=== PATIENT | male | born 1965 | race African-American/Black ===

== ENCOUNTER 2016-10-12 10:54 | Inpatient (IN) | payer OTHER ==
[2016-10-12] VITALS (599 sets, daily range): BP systolic 108–150; BP diastolic 72–96; PULSE 80–103; TEMP 97.1–98.3; O2SAT 86–97
[~2016-10-12] VITALS: Ht 195.6 cm; Wt 130.4 kg
[~2016-10-12 10:54] MED LIST: ADALAT CC60 MG PO; CATAPRES 0.1MG0.1 MG PO; COREG12.5 MG PO; NAPROSYN500 MG PO; PERCOCET 325 MG1 TA2 PO; ZYLOPRIM 100MG100 MG PO
[2016-10-12] MEDS ORDERED: ZANTAC 300300 MG PO (11:17)
[2016-10-12] MEDS ORDERED: JANUMET 500 MG-1 TA1 PO (11:17)
[2016-10-12] MEDS ORDERED: PRINZIDE 12.5 M1 TA1 PO ×2 (11:19→22:05)
[2016-10-12] MEDS ORDERED: VIAGRA100 M1 PO (11:20)
[2016-10-12 11:49] LABS: BASO # 0.1 (0.0-0.2); BASO % 0.9 % (0.0-2.0); EOS % 0.1 % (0-4.0); GRAN # 7.7 (1.4-6.5); GRAN % 75.4 % (42.2-75.2); HEMATOCRIT 45.3 % (42.0-52.0); HEMOGLOBIN 14.9 g/dl (13.5-18.0); LYMPH % 19.4 % (20.0-51.0); MEAN CELL VOLUME 85 fl (80.0-100.0); MEAN CORPUSCULAR HEMOGLOBIN 28 pg (27.0-31.0); MEAN CORPUSCULAR HGB CONC 33 g/dl (33.0-37.0); MEAN PLATELET VOLUME 11.9 fl (7.4-10.4); MONO # 0.4 (0.1-0.6); MONO % 3.7 % (1.7-9.3); PLATELET COUNT 291 K/mm3 (130-400); RED BLOOD COUNT 5.33 M/mm3 (4.20-5.60); REDCELL DISTRIBUTION WIDTH-CV 13.7 % (11.5-14.5); WHITE BLOOD COUNT 10.2 K/mm3 (4.8-10.8)
[2016-10-12 11:53] LABS: ARTERIAL BLD GAS O2 SATURATION 91.3 % (92-100); ARTERIAL BLD GAS TCO2 CT 24.6; ARTERIAL BLOOD GAS BASE EXCESS -1.8 (-2-2); ARTERIAL BLOOD GAS HCO3 23.3 meq/L (22-26); ARTERIAL BLOOD GAS PHT 7.37 C (7.35-7.45); ARTERIAL BLOOD GAS PO2 67.4 mmHg (80-100); ARTERIAL BLOOD GAS PO2T 67.4 (80-100); ARTERIAL BLOOD GAS pH 7.37 (7.35-7.45)
[2016-10-12 11:54] LABS: ATS? YES
[2016-10-12 12:01] LABS: ADJUSTED CALCIUM 9.6 mg/dL (8.4-10.2); ALANINE AMINOTRANSFERASE 28 U/L (21-72); ALBUMIN 5.3 gm/dL (3.5-5.0); ALKALINE PHOSPHATASE 94 U/L (50-136); ANION GAP 23 mmol/L (7-16); BILIRUBIN,TOTAL 1.2 mg/dL (0.0-1.0); BLOOD UREA NITROGEN 50 mg/dL (9-20); CALCIUM 10.6 mg/dL (8.4-10.2); CARBON DIOXIDE 22 mmol/L (22-30); CHLORIDE 95 mmol/L (98-107); CREATININE, serum 1.44 mg/dL (0.66-1.25); POTASSIUM 4.5 mmol/L (3.4-5.0); SODIUM 140 mmol/L (137-145); TOTAL PROTEIN 8.2 gm/dL (6.4-8.2)
[2016-10-12 12:12] LABS: GLUCOSE 744 mg/dL (74-106)
[2016-10-12 12:14] LABS: PH 5 (5-8); SQUAMOUS EPITHELIAL None Seen /hpf; URINE APPEARANCE Clear; URINE BACTERIA None Seen /hpf; URINE BILIRUBIN Negative (NEGATIVE); URINE BLOOD Negative (NEGATIVE); URINE COLOR Straw; URINE GLUCOSE 3+ (NEGATIVE); URINE KETONE 1+ (NEGATIVE); URINE RBC None Seen /hpf; URINE UROBILINOGEN Negative (NEGATIVE); URINE WBC None Seen /hpf
[2016-10-12 16:26] LABS: B-TYPE NATRIURETIC PEPTIDE 19 pg/mL (0-125)
[2016-10-12 18:06] LABS: CALCIUM 10.1 mg/dL (8.4-10.2); CREATININE, serum 1.28 mg/dL (0.66-1.25); MAGNESIUM 2.9 mg/dL (1.6-2.3); PHOSPHOROUS 4.4 mg/dL (2.5-4.5)
[2016-10-12] MEDS ORDERED: ZYLOPRIM 100MG100 MG PO (22:07)
[2016-10-12] MEDS ORDERED: PROCARDIA XL 6060 MG PO (22:08)
[2016-10-13] VITALS (612 sets, daily range): BP systolic 129–146; BP diastolic 89–100; PULSE 71–90; TEMP 97.3–98.3; O2SAT 89–98
[2016-10-13 06:39] LABS: CALCIUM 9.6 mg/dL (8.4-10.2); CREATININE, serum 1.17 mg/dL (0.66-1.25); MAGNESIUM 2.9 mg/dL (1.6-2.3); PHOSPHOROUS 3.1 mg/dL (2.5-4.5); POTASSIUM 3.6 mmol/L (3.4-5.0)
[2016-10-13 06:44] LABS: HEMATOCRIT 41.4 % (42.0-52.0); HEMOGLOBIN 13.7 g/dl (13.5-18.0); MEAN CELL VOLUME 85 fl (80.0-100.0); MEAN CORPUSCULAR HEMOGLOBIN 28 pg (27.0-31.0); MEAN CORPUSCULAR HGB CONC 33 g/dl (33.0-37.0); MEAN PLATELET VOLUME 11.2 fl (7.4-10.4); PLATELET COUNT 239 K/mm3 (130-400); RED BLOOD COUNT 4.86 M/mm3 (4.20-5.60); REDCELL DISTRIBUTION WIDTH-CV 13.9 % (11.5-14.5); WHITE BLOOD COUNT 7.4 K/mm3 (4.8-10.8)
[2016-10-14] VITALS (7 sets, daily range): BP systolic 129–177; BP diastolic 68–106; PULSE 74–95; TEMP 98.2–99
[2016-10-15 03:46] VITALS: BP 157/89; PULSE 68; TEMP 98.7
[2016-10-15 08:10] VITALS: BP 152/112; PULSE 84; TEMP 98.4
[2016-10-15] MEDS ORDERED: NOVOLOG 100U100 U/M1 SQ (10:21)
== END 2016-10-15 10:53 | disposition home or self-care (01) | DRG 639 ==
LOC: COL.ER 10:54 → ICU 12:28 → MEDICAL 10-13 11:00
PROVIDERS: Emergency Medicine; Internal Medicine
DX: E13.10 Other specified diabetes mellitus with ketoacidosis without coma (principal)
CPT/HCPCS: 99223-AI; 99231-AI; 99239; C9113; J1644; J1815; J7030

== ENCOUNTER 2017-09-08 09:59 | Day surgery (SDC) | payer OTHER ==
[~2017-09-08] VITALS: Ht 195.6 cm; Wt 137.0 kg
[~2017-09-08 09:59] MED LIST changes: +JANUMET 500 MG-1 TA1 PO; +NOVOLOG 100U100 U/M1 SQ; +PRINZIDE 12.5 M1 TA1 PO; +PROCARDIA XL 6060 MG PO; +VIAGRA100 M1 PO; +ZANTAC 300300 MG PO
[2017-09-08] MEDS ORDERED: PRINZIDE 12.5 M1 TA1 PO (10:47)
[2017-09-08] MEDS ORDERED: ZYLOPRIM 100MG100 MG PO (10:49)
[2017-09-08] MEDS ORDERED: COREG12.5 MG PO (10:49)
[2017-09-08 10:50] VITALS: BP 147/97; PULSE 87; TEMP 98.3
[2017-09-08 12:35] VITALS: BP 133/89; PULSE 74; TEMP 97.4
[2017-09-08 12:50] VITALS: BP 127/88; PULSE 76
[2017-09-08 13:47] VITALS: BP 132/82; PULSE 69
== END 2017-09-08 13:10 | disposition home or self-care (01) ==
LOC: SDCO 09:59
DX: Z12.11 Encounter for screening for malignant neoplasm of colon (principal); E11.9 Type 2 diabetes mellitus without complications; I10 Essential (primary) hypertension
CPT/HCPCS: OP; J2250; J2405; J3010; J7030